=== PATIENT | male | born 1985 | race Caucasian/White ===

== ENCOUNTER 2016-06-30 10:54 | Emergency (ER) | payer MEDICAID ==
[~2016-06-30] VITALS: Wt 71.0 kg
[2016-06-30] MEDS ORDERED: BACTDS PO (12:37)
[2016-06-30] MEDS ORDERED: CEPH-443 PO (12:37)
--- NOTE | 2016-06-30 12:43 | ERD ---
ER Documentation Chief Complaint Date/Time DATE: 06/30/16 TIME: 12:38 Chief Complaint ARM PAIN DUE TO IV DRUG USE HPI Patient is a 31-year-old male who presents to the ED with arm lesions. He states that he uses heroin IV. He states that he has had previous abscesses before and they have been drained. However he states that he feels like an abscess might be forming. He denies fever or chills. He denies headache or dizziness. Denies abdominal pain, nausea, vomiting or diarrhea. Denies arm pain. No other complaints. Denies numbness or tingling. ROS All systems reviewed and are negative except as per history of present illness. Medications Home Meds Active Scripts Cephalexin* (Keflex*) 500 Mg Capsule, 500 MG PO QID for 5 Days, CAP Prov:MARIE HARRIS PA-C 06/30/16 Sulfamethoxazole-Trimethoprim* (Bactrim* DS) 800-160 Mg Tab, 1 TAB PO BID for 5 Days, TAB Prov:MARIE HARRIS PA-C 06/30/16 PMhx/Soc History of Surgery: No Anesthesia Reaction: No Hx Neurological Disorder: No Hx Respiratory Disorders: No Hx Cardiac Disorders: No Hx Psychiatric Problems: No Hx Miscellaneous Medical Probl: No Hx Alcohol Use: Yes Hx Substance Use: Yes (Heroin daily) Physical Exam Vitals Vital Signs Date Time Temp Pulse Resp B/P Pulse Ox O2 Delivery O2 Flow Rate FiO2 06/30/16 10:57 97.4 92 18 149/65 99 Physical Exam GENERAL: Well-developed, well-nourished male. Appears in no acute distress. HEAD: Normocephalic, atraumatic. EYES: Pupils are equally reactive bilaterally. EOMs grossly intact. No conjunctival erythema. ENT: Moist mucous membranes. No uvula deviation. No kissing tonsils. No exudates. NECK: Supple. No lymphadenopathy or thyromegaly. No meningismus. negative kernig. negative brudinski. LUNG: Clear to auscultation bilaterally. No rhonchi, wheezing, rales or coarse breath sounds. HEART: Regular rate and rhythm. No murmurs, rubs or gallops. Extremities: Equal pulses bilaterally. No peripheral clubbing, cyanosis or edema. No unilateral leg swelling. NEUROLOGIC: Alert and oriented. Moving all four extremities. 5/5 strength in all extremities. Normal speech. Steady gait. SKIN: Normal color. Warm and dry. mild erythematous abscess on right arm. excoriated with no fluctuance. mild induration. no streaking. multiple tattoos. track obando throughout arms. Capillary refill < 2 seconds Procedures/MDM ER COURSE: I kept the patient and/or family informed of laboratory and diagnostic imaging results throughout the emergency room course. MEDICAL DECISION MAKING: This is a 31-year-old male who presents with abscess on arm after using IV heroin. Vital signs were reviewed. Patient is afebrile. Patient is not hypoxic. Patient is not toxic or ill-appearing. No incision or drainage will be done here in the ED as there is no fluctuance. There is one area of mild induration however no drainage will be done. Low suspicion for necrotizing fasciitis, SJS , toxic epidermal necrolysis, Kawasaki, erythema multiforme, gangrene, scarlet fever, meningococcemia, sepsis, anaphylaxis, sepsis, deep space infection, or foreign body. DISCHARGE: At this time, patient is stable for discharge and outpatient management with no new complaints during the ER course. Patient was sent home with Bactrim, Keflex. I did discuss with patient that using Heroin will lead to infection. Patient will be discharged home with instructions to recheck for new or worsening symptoms such as fever, nausea, weakness, LOC and to follow up with primary care in the next 1-2 days. Patient was advised to return to the ER for any new or worsening symptoms. Plan was discussed and patient and/or family understands and agrees. Home instructions were given. Departure Diagnosis: Primary Impression: Abscess Condition: Stable Patient Instructions: Abscess, Antiobiotic Treatment Only Additional Instructions: Call your primary care doctor TOMORROW for an appointment during the next 1-2 days.See the doctor sooner or return here if your condition worsens before your appointment time. MARIE HARRIS PA-C Jun 30, 2016 12:43
== END 2016-06-30 12:48 | disposition home or self-care (01) ==
LOC: FTE 10:54
DX: L02.413 Cutaneous abscess of right upper limb (principal)
CPT/HCPCS: 99284